=== PATIENT | female | born 1965 ===

== ENCOUNTER 2017-02-14 16:36 | Emergency (ER) | payer OTHER ==
[2017-02-14 16:36] VITALS: BMI 27.3
[2017-02-14 17:04] VITALS: RESP 16; O2SAT 99
--- NOTE | 2017-02-14 17:48 | ED PDOC ---
Arrival/HPI - General Chief Complaint: Back Pain Time Seen by Provider: 02/14/17 17:02 Historian: Patient - History of Present Illness Narrative History of Present Illness (Text): 02/14/17 17:44 51yo female with PMHx of hypertension present with 5days history of sore throat and 2days history of back pain that radiates to her legs. Pain is worse with any movement. Did not take any medication for pain. Denies fever, drooling, dysphagia, sick contact, travel, nausea, vomiting, focal weakness, urinary/ fecal incontinence, any other complaint. Past Medical History - Provider Review Nursing Documentation Reviewed: Yes - Infectious Disease Hx of Infectious Diseases: None - Cardiac Hx Cardiac Disorders: Yes Hx Hypertension: Yes - Pulmonary Hx Respiratory Disorders: No - Neurological Hx Neurological Disorder: Yes Hx Dizziness: Yes (today) Hx Migraine: Yes - HEENT Hx HEENT Disorder: No - Renal Hx Renal Disorder: No - Endocrine/Metabolic Hx Endocrine Disorders: No - Hematological/Oncological Hx Blood Disorders: No - Integumentary Hx Dermatological Disorder: No - Musculoskeletal/Rheumatological Hx Musculoskeletal Disorders: No - Gastrointestinal Hx Gastrointestinal Disorders: No - Genitourinary/Gynecological Hx Genitourinary Disorders: Yes Other/Comment: ovarian cysts removed - Psychiatric Hx Psychophysiologic Disorder: No Hx Substance Use: No - Surgical History Hx Hysterectomy: Yes Other/Comment: cystectomy, fibroid removal. - Anesthesia Hx Anesthesia: Yes Hx Anesthesia Reactions: No Hx Malignant Hyperthermia: No Family/Social History - Physician Review Nursing Documentation Reviewed: Yes Family/Social History: Unknown Family HX Smoking Status: Never Smoked Hx Alcohol Use: No Hx Substance Use: No Allergies/Home Meds Allergies/Adverse Reactions: Allergies EGG Allergy (Verified 02/14/17 17:05) ITCHING FISH Allergy (Verified 02/14/17 17:05) ITCHING salami Allergy (Uncoded 02/14/17 17:05) ITCHING Review of Systems - Physician Review All systems were reviewed & negative as marked: Yes - Review of Systems Constitutional: Normal Eyes: Normal ENT: Normal Respiratory: Normal Cardiovascular: Normal Gastrointestinal: Normal Genitourinary Female: Normal Musculoskeletal: Normal Skin: Normal Neurological: Normal Endocrine: Normal Hemo/Lymphatic: Normal Psychiatric: Normal Physical Exam Vital Signs Reviewed: Yes Vital Signs Temp Pulse Resp BP Pulse Ox 02/14/17 17:03 97.8 F 77 16 139/89 99 Temperature: Afebrile Blood Pressure: Normal Pulse: Regular Respiratory Rate: Normal Appearance: Positive for: Well-Appearing, Non-Toxic, Comfortable Pain Distress: None Mental Status: Positive for: Alert and Oriented X 3 - Systems Exam Head: Present: Atraumatic, Normocephalic Pupils: Present: PERRL Extroacular Muscles: Present: EOMI Conjunctiva: Present: Normal Mouth: Present: Moist Mucous Membranes Pharnyx: Present: Normal. No: ERYTHEMA, EXUDATE, TONSILS ENLARGED, Peritonsilar Swelling, Uvular Deviation, Muffled/Hoarse Voice, Strider, Soft Palate/Uvular Edema Neck: Present: Normal Range of Motion Respiratory/Chest: Present: Clear to Auscultation, Good Air Exchange. No: Respiratory Distress, Accessory Muscle Use Cardiovascular: Present: Regular Rate and Rhythm, Normal S1, S2. No: Murmurs Abdomen: Present: Normal Bowel Sounds. No: Tenderness, Distention, Peritoneal Signs Back: Present: Midline Tenderness. No: Paraspinal Tenderness, Pain with Leg Raise Upper Extremity: Present: Normal Inspection. No: Cyanosis, Edema Lower Extremity: Present: Normal Inspection. No: Edema Neurological: Present: GCS=15, CN II-XII Intact, Speech Normal Skin: Present: Warm, Dry, Normal Color. No: Rashes Psychiatric: Present: Alert, Oriented x 3, Normal Insight, Normal Concentration Medical Decision Making ED Course and Treatment: 02/14/17 18:37 Pt in ED for stated history. She was ambulatory with steady gait and neurologically intact. Rapid strep was negative Her pain improved in ED with medication. She notes allergy to NSAID and will be DC home with tramadol and baclofen. Advised to take Lozenges and f/u with her PMD. - Lab Interpretations Lab Results: Lab Results 02/14/17 17:20: Grp A Beta Strep Ag Negative - RAD Interpretation Radiology Orders: 02/14/17 17:20 LS SPINE WITH OBL > 18 YRS OLD [RAD] Stat - Medication Orders Current Medication Orders: Discontinued Medications Tramadol HCl (Ultram) 50 mg PO STAT STA Stop: 02/14/17 17:21 Last Admin: 02/14/17 17:34 Dose: 50 mg MAR Pain Assessment Document 02/14/17 17:34 MS (Rec: 02/14/17 17:38 MS [id number]) Pain Reassessment Is this a pain reassessment? No Sleep Is patient sleeping during reassessment? No Presence of Pain Presence of Pain Yes Pain Scale Used Pain Scale Used Numeric Location Pain Location Body Site Generalized Description Description Intermittent Intensity of Pain at present 5 Pain Behavior Moaning Facial Grimacing Aggravating Factors Changing Position Alleviating Factors/Management Position Change Techniques Disposition/Present on Arrival - Present on Arrival Any Indicators Present on Arrival: No History of DVT/PE: No History of Uncontrolled Diabetes: No Urinary Catheter: No History of Decub. Ulcer: No History Surgical Site Infection Following: None - Disposition Have Diagnosis and Disposition been Completed?: Yes Diagnosis: Back pain, Sore throat Disposition: HOME/ ROUTINE Disposition Time: 18:40 Patient Plan: Discharge Condition: STABLE Discharge Instructions (ExitCare): Back Pain (ED) Additional Instructions: Follow up with your doctor Return to ED for any new or worsening symptoms Prescriptions: Baclofen [Lioresal] 10 mg PO BID #10 tab traMADol [Ultram] 50 mg PO 12 #12 tab Referrals: Chrissie Lopez [Primary Care Provider] - Follow up with primary Forms: [employer] (Macedonian)
--- NOTE | 2017-02-14 18:23 | RAD ---
PROCEDURE: Radiographs of the Lumbar Spine. HISTORY: back pain COMPARISON: No prior. FINDINGS: BONES: Normal alignment. No listhesis. No fracture. DISC SPACES: Unremarkable. OTHER FINDINGS: Mild degenerative changes are noted IMPRESSION: No evidence of acute fracture or subluxation. Mild degenerative changes.
[2017-02-14 18:52] VITALS: BP 128/76; PULSE 88; TEMP 97.9
== END 2017-02-14 18:52 | disposition home or self-care (01) ==
LOC: ED 16:36
DX: J02.9 Acute pharyngitis, unspecified (principal); M54.9 Dorsalgia, unspecified

== ENCOUNTER 2017-04-15 21:59 | Emergency (ER) | payer OTHER ==
--- NOTE | 2017-04-15 22:17 | ED PDOC ---
Arrival/HPI - General Time Seen by Provider: 04/15/17 22:15 Historian: Patient, Family - History of Present Illness Narrative History of Present Illness (Text): 04/15/17 22:17 Darlene Wise is a 51 year old female, whose past medical history includes myomectomy, ovarian cystectomy, and , who presents to the Emergency department accompanied by relative complaining of abdominal pain. Relative states patient has been experiencing right-sided abdominal pain with associated nausea and vomiting. Patient denies any fever, chills, chest pain, shortness of breath, diarrhea, back pain, neck pain, headache, dizziness, or any other complaints. Time/Duration: Other (this morning) Symptom Onset: Gradual Symptom Course: Unchanged Activities at Onset: Light Context: Home Past Medical History - Provider Review Nursing Documentation Reviewed: Yes - Infectious Disease Hx of Infectious Diseases: None - Cardiac Hx Cardiac Disorders: Yes Hx Hypertension: Yes - Pulmonary Hx Respiratory Disorders: No - Neurological Hx Neurological Disorder: Yes Hx Dizziness: Yes (today) Hx Migraine: Yes - HEENT Hx HEENT Disorder: No - Renal Hx Renal Disorder: No - Endocrine/Metabolic Hx Endocrine Disorders: No - Hematological/Oncological Hx Blood Disorders: No - Integumentary Hx Dermatological Disorder: No - Musculoskeletal/Rheumatological Hx Musculoskeletal Disorders: No - Gastrointestinal Hx Gastrointestinal Disorders: No - Genitourinary/Gynecological Hx Genitourinary Disorders: Yes Other/Comment: ovarian cysts removed - Psychiatric Hx Psychophysiologic Disorder: No Hx Substance Use: No - Surgical History Hx Hysterectomy: Yes Other/Comment: cystectomy, fibroid removal. - Anesthesia Hx Anesthesia: Yes Hx Anesthesia Reactions: No Hx Malignant Hyperthermia: No Family/Social History - Physician Review Nursing Documentation Reviewed: Yes Family/Social History: Unknown Family HX Smoking Status: Never Smoked Hx Alcohol Use: No Hx Substance Use: No Allergies/Home Meds Allergies/Adverse Reactions: Allergies EGG Allergy (Verified 02/14/17 17:05) ITCHING FISH Allergy (Verified 02/14/17 17:05) ITCHING salami Allergy (Uncoded 02/14/17 17:05) ITCHING Review of Systems - Physician Review All systems were reviewed & negative as marked: Yes - Review of Systems Constitutional: Normal. absent: Fevers Eyes: Normal ENT: Normal Respiratory: Normal. absent: SOB, Cough Cardiovascular: Normal. absent: Chest Pain Gastrointestinal: Abdominal Pain, Nausea, Vomiting. absent: Diarrhea Genitourinary Female: Normal. absent: Dysuria, Frequency, Hematuria, Urine Output Changes Musculoskeletal: Normal. absent: Back Pain, Neck Pain Skin: Normal. absent: Rash Neurological: Normal. absent: Headache, Dizziness Endocrine: Normal Hemo/Lymphatic: Normal Psychiatric: Normal Physical Exam Vital Signs Reviewed: Yes Vital Signs Temp Pulse Resp BP Pulse Ox 04/16/17 00:57 92 H 16 136/71 99 04/15/17 22:15 98.4 F 96 H 18 149/90 99 Temperature: Afebrile Blood Pressure: Normal Pulse: Regular Respiratory Rate: Normal Appearance: Positive for: Well-Appearing, Non-Toxic, Comfortable Pain Distress: None Mental Status: Positive for: Alert and Oriented X 3 - Systems Exam Head: Present: Atraumatic, Normocephalic Pupils: Present: PERRL Extroacular Muscles: Present: EOMI Conjunctiva: Present: Normal Mouth: Present: Moist Mucous Membranes Neck: Present: Normal Range of Motion Respiratory/Chest: Present: Clear to Auscultation, Good Air Exchange. No: Respiratory Distress, Accessory Muscle Use Cardiovascular: Present: Regular Rate and Rhythm, Normal S1, S2. No: Murmurs Abdomen: Present: Tenderness (RUQ tenderness), Normal Bowel Sounds. No: Distention, Peritoneal Signs Back: Present: Normal Inspection Upper Extremity: Present: Normal Inspection. No: Cyanosis, Edema Lower Extremity: Present: Normal Inspection. No: Edema Neurological: Present: GCS=15, CN II-XII Intact, Speech Normal Skin: Present: Warm, Dry, Normal Color. No: Rashes Psychiatric: Present: Alert, Oriented x 3, Normal Insight, Normal Concentration Medical Decision Making ED Course and Treatment: 04/15/17 22:17 Impression: 51 year old female complaining of right-sided abdominal pain since this morning. Differential Diagnosis included but are not limited to: kidney stone vs. renal colic Plan: -- EKG -- Labs, cardiac enzymes, lipase, amylase, blood cultures -- Urinalysis -- IV fluids -- Zofran -- Morphine -- Reassess and disposition Prior Visits: Notes and results from previous visits were reviewed. On 02/14/2017, pt was seen in the Emergency department for back pain and sore throat. Pt was d/c home. Progress Notes: 04/15/17 22:50 Reviewed EKG, NSR at 63 bpm. Non-specific ST/T wave changes. 04/16/17 00:59 Reviewed radiology, CT Abdomen and Pelvis shows: Limitations: Motion artifact - mild. Lack of intravenous contrast. Lower thorax: Mild cardiomegaly. Mild atelectasis. ABDOMEN: Liver: Unremarkable. Gallbladder and bile ducts: No calcified stones. No ductal dilation. Pancreas: Unremarkable. No ductal dilation. Spleen: No splenomegaly. Adrenals: No mass. Kidneys and ureters: Few small calculi within RIGHT kidney. [id number] pelvocaliectasis of RIGHT kidney. Mild to moderately dilated RIGHT ureter. 0.2 x 0.2 x 0.2 cm calculus at/near RIGHT ureterovesical junction. Stomach and bowel: No definite mural thickening. No obstruction. Appendix: Normal caliber. No inflammation. PELVIS: Bladder: Unremarkable. No stones. Reproductive: Hysterectomy. ABDOMEN and PELVIS: Intraperitoneal space: No significant fluid collection. No free air. Bones/joints: No acute fracture. Soft tissues: Unremarkable. Vasculature: Unremarkable. No aneurysm. Lymph nodes: No pathologically enlarged lymph nodes. IMPRESSION: 1. RIGHT distal ureteral calculus with [id number] hydroureteronephrosis. 2. Incidental/non-acute findings are described above. 04/16/17 01:08 On re-evaluation, patient feels better and is in no acute distress. I have discussed the results and plan with the patient, who expresses understanding. Patient in agreement with plan to be discharged home. Patient is stable for discharge. Patient was instructed to follow up with physician or return if symptoms worsen or new concerning symptoms arise. - Lab Interpretations Lab Results: 04/15/17 22:30 04/15/17 22:30 Lab Results 04/15/17 23:00: Urine Color yellow, Urine Appearance Clear, Urine pH 6.0, Ur Specific [place] 1.020, Urine Protein Trace H, Urine Glucose (UA) Negative, Urine Ketones Negative, Urine Blood Large H, Urine Nitrate Negative, Urine Bilirubin Negative, Urine Urobilinogen 0.2, Ur Leukocyte Esterase Negative, Urine RBC Tntc, Urine WBC 0 - 2, Ur Epithelial Cells 4 - 5, Urine Bacteria Small 04/15/17 22:30: Sodium 142, Potassium 4.0, Chloride 104, Carbon Dioxide 27, Anion Gap 15, BUN 19, Creatinine 0.7, Est GFR ( Amer) > 60, Est GFR (Non- Af Amer) > 60, Random Glucose 109, Calcium 10.1, Total Bilirubin 0.3, AST 29, ALT 25, Alkaline Phosphatase 70, Lactate Dehydrogenase 387, Total Creatine Kinase 59, Troponin I < 0.01, Total Protein 8.4 H, Albumin 4.4, Globulin 4.1, Albumin/Globulin Ratio 1.1, Amylase 90, Lipase 132 04/15/17 22:30: PT 12.0, INR 1.05, APTT 29.2 04/15/17 22:30: WBC 7.8 D, RBC 4.80, Hgb 13.5, Hct 40.4, MCV 84.2, MCH 28.1, MCHC 33.4, RDW 13.2, Plt Count 157, MPV 12.2 H, Gran % 44.6 L, Lymph % (Auto) 45.3 H, Thayer % (Auto) 8.7 H, Eos % (Auto) 1.3 L, Baso % (Auto) 0.1, Gran # 3.49 , Lymph # 3.6 H, Thayer # 0.7 H, Eos # 0.1, Baso # 0.01 I have reviewed the lab results: Yes - RAD Interpretation Radiology Orders: 04/15/17 23:21 ABD & PELVIS W/O PO OR IV CONT [CT] Stat Title Insurance Sales Representative: Radiologist - EKG Interpretation Interpreted by ED Physician: Yes Type: 12 lead EKG - Medication Orders Current Medication Orders: Discontinued Medications Ciprofloxacin (Cipro) 500 mg PO ONCE STA PRN Reason: Protocol Stop: 04/16/17 01:11 Last Admin: 04/16/17 01:52 Dose: 500 mg Lactated Ringer's (Lactated Ringer's) 1,000 mls @ 100 mls/hr IV .Q10H STA Stop: 04/16/17 08:19 Last Admin: 04/15/17 22:51 Dose: 100 mls/hr eMAR Start Stop Document 04/15/17 22:51 RD (Rec: 04/15/17 22:51 RD [id number]) Intravenous Solution Start Date 04/15/17 Start Time 22:51 Ketorolac Tromethamine (Toradol) 30 mg IVP ONCE ONE Stop: 01/21/18 01:11 Last Admin: 04/16/17 01:52 Dose: 30 mg MAR Pain Assessment Document 04/16/17 01:52 RD (Rec: 04/16/17 01:52 RD [id number]) Pain Reassessment Is this a pain reassessment? No Sleep Is patient sleeping during reassessment? No Presence of Pain Presence of Pain Yes IVP Administration Document 04/16/17 01:52 RD (Rec: 04/16/17 01:52 RD [id number]) Charges for Administration # of IVP Administrations 1 Morphine Sulfate (Morphine) 2 mg IVP STAT STA Stop: 04/15/17 22:21 Last Admin: 04/15/17 22:51 Dose: 2 mg MAR Pain Assessment Document 04/15/17 22:51 RD (Rec: 04/15/17 22:51 RD [id number]) Pain Reassessment Is this a pain reassessment? Yes Sleep Is patient sleeping during reassessment? No Presence of Pain Presence of Pain Yes IVP Administration Document 04/15/17 22:51 RD (Rec: 04/15/17 22:51 RD [id number]) Charges for Administration # of IVP Administrations 1 Ondansetron HCl (Zofran Inj) 4 mg IVP STAT STA Stop: 04/15/17 22:21 Last Admin: 04/15/17 22:51 Dose: 4 mg IVP Administration Document 04/15/17 22:51 RD (Rec: 04/15/17 22:51 RD [id number]) Charges for Administration # of IVP Administrations 1 - Scribe Statement The provider has reviewed the documentation as recorded by the Scriblinh Mg All medical record entries made by the Mariajoseiblinh were at my direction and personally dictated by me. I have reviewed the chart and agree that the record accurately reflects my personal performance of the history, physical exam, medical decision making, and the department course for this patient. I have also personally directed, reviewed, and agree with the discharge instructions and disposition. Disposition/Present on Arrival - Present on Arrival Any Indicators Present on Arrival: No History of DVT/PE: No History of Uncontrolled Diabetes: No Urinary Catheter: No History of Decub. Ulcer: No History Surgical Site Infection Following: None - Disposition Have Diagnosis and Disposition been Completed?: Yes Diagnosis: Renal colic on right side Disposition: HOME/ ROUTINE Disposition Time: 01:10 Condition: GOOD Discharge Instructions (ExitCare): Kidney Stones (ED) Print Language: LIBERIAN Prescriptions: Ciprofloxacin [Cipro] 500 mg PO BID #14 tab Tamsulosin [Flomax] 0.4 mg PO DAILY #10 cap Tramadol HCl [Ultram] 50 mg PO QID #10 tab Referrals: [facility] [place] - Follow up with primary Forms: [employer] (Wallisian)
[2017-04-15] MEDS ORDERED: Lactated Ringer's 1,000 ML IV STA (22:20)
[2017-04-15] MEDS ORDERED: Morphine 2 mg/ml ISec IVP STA (22:20)
[2017-04-15 22:22] VITALS: BMI 27.4
[2017-04-15 22:23] VITALS: TEMP 98.4; O2SAT 99
[2017-04-15 22:47] LABS: BASO # 0.01 [, K/mm3] (0.0-2.0); BASO % 0.1 % (0.0-3.0); EOS # 0.1 (0.0-0.7); EOS % 1.3 % (1.5-5.0); GRAN # 3.49 (1.4-6.5); GRAN % 44.6 % (50.0-68.0); HEMOGLOBIN 13.5 g/dL (12.0-16.0); LYMPH # 3.6 (1.2-3.4); LYMPH % 45.3 % (22.0-35.0); MEAN CELL VOLUME 84.2 fl (80.0-105.0); MEAN CORPUSCULAR HEMOGLOBIN 28.1 pg (25.0-35.0); MEAN CORPUSCULAR HGB CONC 33.4 g/dl (31.0-37.0); MEAN PLATELET VOLUME 12.2 fl (7.0-11.0); MONO # 0.7 (0.1-0.6); MONO % 8.7 % (1.0-6.0); RBC 4.8 [, 10^6/uL] (3.5-6.1); RED CELL DISTRIBUTION WIDTH 13.2 % (11.5-14.5); WHITE BLOOD COUNT 7.8 [, 10^3/ul] (4.5-11.0)
[2017-04-15 22:53] LABS: ALBUMIN 4.4 g/dL (3.0-4.8); ALT/SGPT 25 U/L (7-56); AMYLASE 90 U/L (35-125); AST/SGOT 29 U/L (14-36); BLOOD UREA NITROGEN 19 mg/dL (7-21); CALCIUM 10.1 mg/dL (8.4-10.5); GFR AFRICAN-AMERICAN > 60; GFR NON-AFRICAN AMERICAN > 60; LIPASE 132 U/L (23-300)
[2017-04-15 22:59] LABS: ALB/GLOB RATIO 1.1 (1.1-1.8)
[2017-04-15 23:04] LABS: TROPONIN I < 0.01 ng/mL
[2017-04-15 23:15] LABS: URINE BILIRUBIN NEGATIVE (NEGATIVE); URINE BLOOD LARGE (NEGATIVE); URINE GLUCOSE (UA) NEGATIVE (NEGATIVE); URINE LEUKOCYTE ESTERASE NEGATIVE Leu/uL (NEGATIVE); URINE NITRATE NEGATIVE (NEGATIVE); URINE PROTEIN TRACE mg/dL (<30 mg/dL); URINE UROBILINOGEN 0.2 E.U./dL (<1 E.U./dL)
[2017-04-15 23:17] LABS: URINE APPEARANCE CLEAR (CLEAR)
[2017-04-15 23:18] LABS: INR 1.05 (0.93-1.08); PARTIAL THROMBOPLASTIN TIME 29.2 Seconds (25.1-36.5)
[2017-04-15 23:31] LABS: URINE BACTERIA SMALL (NEG); URINE RBC TNTC /hpf (0-2); URINE WBC 0 - 2 /hpf (0-6)
--- NOTE | 2017-04-16 00:42 | CT ---
EXAM: CT Abdomen and Pelvis Without Intravenous Contrast CLINICAL HISTORY: 51 years old, female; Pain; Abdominal pain; Localized; Right; Prior surgery; Surgery date: 6+ months; Surgery type: HX hysterectomy, HX fibroids removed, HX ovarian cysts removed; Additional info: Ruq pain TECHNIQUE: Axial computed tomography images of the abdomen and pelvis without intravenous contrast. All CT scans at this facility use one or more dose reduction techniques, viz.: automated exposure control; ma/kV adjustment per patient size (including targeted exams where dose is matched to indication; i.e. head); or iterative reconstruction technique. Coronal and sagittal reformatted images were created and reviewed. COMPARISON: No relevant prior studies available. FINDINGS: Limitations: Motion artifact - mild. Lack of intravenous contrast. Lower thorax: Mild cardiomegaly. Mild atelectasis. ABDOMEN: Liver: Unremarkable. Gallbladder and bile ducts: No calcified stones. No ductal dilation. Pancreas: Unremarkable. No ductal dilation. Spleen: No splenomegaly. Adrenals: No mass. Kidneys and ureters: Few small calculi within RIGHT kidney. [id number] pelvocaliectasis of RIGHT kidney. Mild to moderately dilated RIGHT ureter. 0.2 x 0.2 x 0.2 cm calculus at/near RIGHT ureterovesical junction. Stomach and bowel: No definite mural thickening. No obstruction. Appendix: Normal caliber. No inflammation. PELVIS: Bladder: Unremarkable. No stones. Reproductive: Hysterectomy. ABDOMEN and PELVIS: Intraperitoneal space: No significant fluid collection. No free air. Bones/joints: No acute fracture. Soft tissues: Unremarkable. Vasculature: Unremarkable. No aneurysm. Lymph nodes: No pathologically enlarged lymph nodes. IMPRESSION: 1. RIGHT distal ureteral calculus with [id number] hydroureteronephrosis. 2. Incidental/non-acute findings are described above.
[2017-04-16 00:58] VITALS: BP 136/71; PULSE 92; RESP 16
--- NOTE | 2017-04-16 10:11 | CARD ---
APPROVED REPORT EKG Measurement Heart [id number] AL [id number] <Conclusion> Normal sinus rhythm Normal ECG No change
== END 2017-04-16 01:52 | disposition home or self-care (01) ==
LOC: ED 21:59
DX: N23 Unspecified renal colic (principal); I10 Essential (primary) hypertension
CPT/HCPCS: 74176; 80053; 81001; 82150; 82550; 83615; 83690; 84484; 85025; 85610; 85730; 87040; 93005; 96374; 96375; 99283; J1885; J2270; J2405; J7120

== ENCOUNTER 2017-10-16 12:54 | Emergency (ER) | payer OTHER ==
[2017-10-16 13:02] VITALS: BMI 27.9
[2017-10-16 13:07] VITALS: TEMP 98.2
--- NOTE | 2017-10-16 14:54 | RAD ---
Date of service: 10/16/2017 PROCEDURE: Right Foot Radiographs. HISTORY: Blunt Trauma Yesterday COMPARISON: None. FINDINGS: BONES: There is an obliquely oriented minimally displaced fracture through the mid 5th proximal phalanx JOINTS: Normal. SOFT TISSUES: Normal. OTHER FINDINGS: None. IMPRESSION: There is an obliquely oriented minimally displaced fracture through the mid 5th proximal phalanx
--- NOTE | 2017-10-16 15:09 | ED PDOC ---
Arrival/HPI - General Time Seen by Provider: 10/16/17 13:08 Historian: Patient - History of Present Illness Narrative History of Present Illness (Text): 10/16/17 15:06 52 year old female, with no significant past medical history, who presents to the emergency department with right foot pain. Patient notes a dresser fell on the foot. Patient denies any fever, chills, chest pain, shortness of breath, nausea, vomiting, diarrhea, back pain, neck pain, headache, dizziness, or any other complaints. Time/Duration: Other (yesterday) Symptom Onset: Sudden Symptom Course: Unchanged Activities at Onset: Light Context: Home Past Medical History - Provider Review Nursing Documentation Reviewed: Yes - Infectious Disease Hx of Infectious Diseases: None - Cardiac Hx Cardiac Disorders: Yes Hx Hypertension: Yes - Pulmonary Hx Respiratory Disorders: No - Neurological Hx Neurological Disorder: Yes Hx Dizziness: Yes (today) Hx Migraine: Yes - HEENT Hx HEENT Disorder: No - Renal Hx Renal Disorder: No - Endocrine/Metabolic Hx Endocrine Disorders: No - Hematological/Oncological Hx Blood Disorders: No - Integumentary Hx Dermatological Disorder: No - Musculoskeletal/Rheumatological Hx Musculoskeletal Disorders: No - Gastrointestinal Hx Gastrointestinal Disorders: No - Genitourinary/Gynecological Hx Genitourinary Disorders: Yes Other/Comment: ovarian cysts removed - Psychiatric Hx Psychophysiologic Disorder: No Hx Substance Use: No - Surgical History Hx Hysterectomy: Yes Other/Comment: cystectomy, fibroid removal. - Anesthesia Hx Anesthesia: Yes Hx Anesthesia Reactions: No Hx Malignant Hyperthermia: No Family/Social History - Physician Review Nursing Documentation Reviewed: Yes Family/Social History: Unknown Family HX Smoking Status: Never Smoked Hx Alcohol Use: No Hx Substance Use: No Allergies/Home Meds Allergies/Adverse Reactions: Allergies EGG Allergy (Verified 02/14/17 17:05) ITCHING FISH Allergy (Verified 02/14/17 17:05) ITCHING salami Allergy (Uncoded 02/14/17 17:05) ITCHING Review of Systems - Physician Review All systems were reviewed & negative as marked: Yes - Review of Systems Constitutional: Normal Eyes: Normal ENT: Normal Respiratory: Normal. absent: SOB, Cough Cardiovascular: Normal. absent: Chest Pain Gastrointestinal: Normal. absent: Abdominal Pain, Diarrhea, Nausea, Vomiting Genitourinary Female: Normal. absent: Dysuria, Frequency Musculoskeletal: Other (rigth foot pain). absent: Back Pain, Neck Pain Skin: Normal. absent: Rash Neurological: Normal. absent: Headache, Dizziness Endocrine: Normal Hemo/Lymphatic: Normal Psychiatric: Normal Physical Exam Vital Signs Reviewed: Yes Vital Signs Temp Pulse Resp BP Pulse Ox 10/16/17 13:06 98.2 F 89 18 108/78 96 Temperature: Afebrile Blood Pressure: Normal Pulse: Regular Respiratory Rate: Normal Appearance: Positive for: Well-Appearing, Non-Toxic, Comfortable Pain Distress: None Mental Status: Positive for: Alert and Oriented X 3 - Systems Exam Head: Present: Atraumatic, Normocephalic Pupils: Present: PERRL Extroacular Muscles: Present: EOMI Conjunctiva: Present: Normal Mouth: Present: Moist Mucous Membranes Neck: Present: Normal Range of Motion Respiratory/Chest: Present: Clear to Auscultation, Good Air Exchange. No: Respiratory Distress, Accessory Muscle Use Cardiovascular: Present: Regular Rate and Rhythm, Normal S1, S2. No: Murmurs Abdomen: No: Tenderness, Distention, Peritoneal Signs Back: Present: Normal Inspection Upper Extremity: Present: Normal Inspection. No: Cyanosis, Edema Lower Extremity: Present: Swelling (rigth foot). No: Edema Neurological: Present: GCS=15, CN II-XII Intact, Speech Normal Skin: Present: Warm, Dry, Normal Color. No: Rashes Psychiatric: Present: Alert, Oriented x 3, Normal Insight, Normal Concentration Medical Decision Making ED Course and Treatment: 10/16/17 15:10 Impression: 52 year old female present sot th eed with right foot pain. Plan: -- Xray rt foot -- Reassess and disposition Progress Notes: Xray rt foot reviewed, shows: BONES: There is an obliquely oriented minimally displaced fracture through the mid 5th proximal phalanx JOINTS: Normal. SOFT TISSUES: Normal. OTHER FINDINGS: None. IMPRESSION: There is an obliquely oriented minimally displaced fracture through the mid 5th proximal phalanx - RAD Interpretation Radiology Orders: 10/16/17 13:10 FOOT RIGHT 3 VIEWS ROUTINE [RAD] Stat - Scribe Statement The provider has reviewed the documentation as recorded by the Scribe Graciela Le All medical record entries made by the Scribe were at my direction and personally dictated by me. I have reviewed the chart and agree that the record accurately reflects my personal performance of the history, physical exam, medical decision making, and the department course for this patient. I have also personally directed, reviewed, and agree with the discharge instructions and disposition. Disposition/Present on Arrival - Present on Arrival History of DVT/PE: No History of Uncontrolled Diabetes: No Urinary Catheter: No History of Decub. Ulcer: No History Surgical Site Infection Following: None - Disposition Diagnosis: Broken toe Disposition: HOME/ ROUTINE Patient Problems: Current Active Problems Problem Status Onset Broken toe Acute Condition: GOOD Discharge Instructions (ExitCare): Toe Fracture (DC) Additional Instructions: Mary- Please wear the shoe at all times except to sleep and bathe. Keep the toes taped together. Follow up with Orthopedics. Konrad- Dr. Troy Starr Prescriptions: Ibuprofen [Motrin Tab] 800 mg PO TID #30 tab Referrals: Valentino Olsen DO [Staff Provider] - Follow up with primary Forms: [facility] (Kazakh)
[2017-10-16 15:13] VITALS: BP 120/61; PULSE 82; RESP 19; O2SAT 98
== END 2017-10-16 15:09 | disposition home or self-care (01) ==
LOC: ED 12:54
DX: S92.511A Displaced fracture of proximal phalanx of right lesser toe(s), initial encounter for closed fracture (principal); W20.8XXA Other cause of strike by thrown, projected or falling object, initial encounter; Y92.009 Unspecified place in unspecified non-institutional (private) residence as the place of occurrence of the external cause

== ENCOUNTER 2017-10-24 14:54 | Emergency (ER) | payer OTHER ==
[2017-10-24 15:00] VITALS: BMI 28.3
[2017-10-24 15:06] VITALS: RESP 18; TEMP 98.3; O2SAT 98
--- NOTE | 2017-10-24 15:42 | ED PDOC ---
Arrival/HPI - General Chief Complaint: Lower Extremity Problem/Injury Time Seen by Provider: 10/24/17 15:39 Historian: Patient - History of Present Illness Narrative History of Present Illness (Text): 10/24/17 15:34 A 52 year old female, with no significant past medical history, presents to the emergency department s/p injury to the left 5th toe 11 days ago, today she is complaining of continued swelling and pain to the L 5th toe. Patient reports she was recently treated here on 10/16/17 for similar complaint and was diagnosed with fracture. States since visit she has not followed up with any specialist. Patient reports that the pain is causing difficulty for her to sleep , has taken Ibuprofen, however has had no relief and is requesting for a stronger medication. Patient denies numbness or other notable injuries/traumas, or any other complaints. Past Medical History - Provider Review Nursing Documentation Reviewed: Yes - Infectious Disease Hx of Infectious Diseases: None - Cardiac Hx Cardiac Disorders: Yes Hx Hypertension: Yes - Pulmonary Hx Respiratory Disorders: No - Neurological Hx Neurological Disorder: Yes Hx Dizziness: Yes (today) Hx Migraine: Yes - HEENT Hx HEENT Disorder: No - Renal Hx Renal Disorder: No - Endocrine/Metabolic Hx Endocrine Disorders: No - Hematological/Oncological Hx Blood Disorders: No - Integumentary Hx Dermatological Disorder: No - Musculoskeletal/Rheumatological Hx Musculoskeletal Disorders: No - Gastrointestinal Hx Gastrointestinal Disorders: No - Genitourinary/Gynecological Hx Genitourinary Disorders: Yes Other/Comment: ovarian cysts removed - Psychiatric Hx Psychophysiologic Disorder: No Hx Substance Use: No - Surgical History Hx Hysterectomy: Yes Other/Comment: cystectomy, fibroid removal. - Anesthesia Hx Anesthesia: Yes Hx Anesthesia Reactions: No Hx Malignant Hyperthermia: No Family/Social History - Physician Review Nursing Documentation Reviewed: Yes Family/Social History: No Known Family HX Smoking Status: Never Smoked Hx Alcohol Use: No Hx Substance Use: No Allergies/Home Meds Allergies/Adverse Reactions: Allergies EGG Allergy (Verified 02/14/17 17:05) ITCHING FISH Allergy (Verified 02/14/17 17:05) ITCHING salami Allergy (Uncoded 02/14/17 17:05) ITCHING Review of Systems - Physician Review All systems were reviewed & negative as marked: Yes - Review of Systems Constitutional: absent: Other (no other notable injuries/trauma) Musculoskeletal: Other (left foot 5th digit swelling and pain) Physical Exam Vital Signs Reviewed: Yes Vital Signs Temp Pulse Resp BP Pulse Ox 10/24/17 16:00 98.3 F 79 18 121/72 98 10/24/17 15:06 98.3 F 83 18 118/80 98 Temperature: Afebrile Blood Pressure: Normal Pulse: Regular Respiratory Rate: Normal Appearance: Positive for: Well-Appearing Pain Distress: None Mental Status: Positive for: Alert and Oriented X 3 - Systems Exam Head: Present: Atraumatic, Normocephalic Neck: Present: Normal Range of Motion Respiratory/Chest: Present: Clear to Auscultation, Good Air Exchange. No: Respiratory Distress, Accessory Muscle Use Cardiovascular: Present: Regular Rate and Rhythm, Normal S1, S2. No: Murmurs Abdomen: No: Tenderness, Distention, Peritoneal Signs Back: Present: Normal Inspection Upper Extremity: Present: Normal Inspection. No: Cyanosis, Edema Lower Extremity: Present: Normal ROM (left foot 5th digit), Tenderness (left foot 5th digit), Swelling (left foot 5th digit), Neurovascularly Intact Neurological: Present: GCS=15, CN II-XII Intact, Speech Normal Skin: Present: Warm, Dry, Normal Color. No: Rashes Psychiatric: Present: Alert, Oriented x 3, Normal Insight, Normal Concentration Medical Decision Making ED Course and Treatment: 10/24/17 15:39 Advised to rest, ice and elevate the foot. Rx for tramadol provided to the patient, advised to take only at night to alleviate the pain. Patient instructed to follow-up with referral provided in 1-2 days without fail. Advised to take medication as prescribed. Return to the emergency room at any time for any new or worsening symptoms. Patient states she fully agrees with and understands discharge instructions. States that she agrees with the plan and disposition. Verbalized and repeated discharge instructions and plan. I have given the patient opportunity to ask any additional questions. - PA / COATING MIXER / Resident Statement MD/DO has reviewed & agrees with the documentation as recorded. - Scribe Statement The provider has reviewed the documentation as recorded by the Gigi Robbins Provider Scribe Provider Scribe Attestation: All medical record entries made by the Mariajoseiblinh were at my direction and personally dictated by me. I have reviewed the chart and agree that the record accurately reflects my personal performance of the history, physical exam, medical decision making, and the department course for this patient. I have also personally directed, reviewed, and agree with the discharge instructions and disposition. Disposition/Present on Arrival - Present on Arrival Any Indicators Present on Arrival: No History of DVT/PE: No History of Uncontrolled Diabetes: No Urinary Catheter: No History of Decub. Ulcer: No History Surgical Site Infection Following: None - Disposition Have Diagnosis and Disposition been Completed?: Yes Diagnosis: Toe fracture, left Disposition: HOME/ ROUTINE Disposition Time: 15:30 Patient Plan: Discharge Condition: STABLE Discharge Instructions (ExitCare): Toe Fracture (DC) Print Language: MACANESE Additional Instructions: racias por dejarnos atenderlo hoy. Usted fue tratado por fractura del dedo sage del pie. La atencin mdica de emergencia que recibi hoy estaba dirigida a esperanza sntomas agudos. Si le prescribieron algn medicamento, llnelo y tome seg n las indicaciones. Esperanza sntomas pueden tardar varios shannon en resolverse. Regrese al Departamento de Emergencia si esperanza sntomas empeoran, no mejoran o si tiene algn otro problema. Llame a marsha de los mdicos / clnicas a los que watkins recomendado que se detallan en el formulario de Informacin de visita del paciente que se incluye en culp paquete de maricel. Traiga todos los documentos que recibi al momento del maricel junto con los medicamentos que est tomando en culp visita de seguimiento. Nuestro tratamiento no puede reemplazar la atencin mdica en curso por parte de un proveedor de atencin primaria (PCP) fuera del departamento de emergencias. Ozzy por permitir que el equipo de [facility] sea parte de culp cuidado hoy. Prescriptions: traMADol [Ultram] 50 mg PO TID PRN #12 tab PRN Reason: Pain, Moderate (4-7) Referrals: [facility] [Outside] - Follow up with primary Mastromonaco,Edward, DO [Staff Provider] - Follow up with primary Forms: [employer] (Wolof)
[2017-10-24 16:42] VITALS: BP 121/72; PULSE 79
== END 2017-10-24 16:00 | disposition home or self-care (01) ==
LOC: ED 14:54
DX: S92.511D Displaced fracture of proximal phalanx of right lesser toe(s), subsequent encounter for fracture with routine healing (principal); W20.8XXD Other cause of strike by thrown, projected or falling object, subsequent encounter

== ENCOUNTER 2018-03-07 14:03 | Emergency (ER) | payer OTHER ==
[2018-03-07 14:27] VITALS: BMI 28.9
[2018-03-07 14:28] VITALS: RESP 18
[2018-03-07 16:27] LABS: INFLUENZA A B NEGATIVE FOR FLU A/B (NEGATIVE)
[2018-03-07 16:41] VITALS: TEMP 97.8; O2SAT 98
--- NOTE | 2018-03-07 17:12 | ED PDOC ---
Arrival/HPI - General Chief Complaint: Cough, Cold, Congestion Time Seen by Provider: 03/07/18 14:40 Historian: Patient - History of Present Illness Narrative History of Present Illness (Text): 52 year old female with PMH of HTN and migraines presents to the ED complaining of flu-like symptoms x 4 days. Symptoms consist of frontal headache, sinus congestion, myalgias, cough productive of yellow sputum. Taking Tylenol for symptoms without relief, none today. No sick contacts, recent antibiotic use, or recent travel. Denies fevers, chills, abdominal pain, vision changes, dizziness, nausea, vomiting, diarrhea, saddle anesthesia, incontinence, urinary symptoms, neck pain, weakness, numbness, paresthesias, or any other associated symptoms. Past Medical History - Provider Review Nursing Documentation Reviewed: Yes - Infectious Disease Hx of Infectious Diseases: None - Cardiac Hx Cardiac Disorders: Yes Hx Hypertension: Yes - Pulmonary Hx Respiratory Disorders: No - Neurological Hx Migraine: Yes - HEENT Hx HEENT Disorder: No - Renal Hx Renal Disorder: No - Endocrine/Metabolic Hx Endocrine Disorders: No - Hematological/Oncological Hx Blood Disorders: No - Integumentary Hx Dermatological Disorder: No - Musculoskeletal/Rheumatological Hx Musculoskeletal Disorders: No - Gastrointestinal Hx Gastrointestinal Disorders: No - Genitourinary/Gynecological Hx Genitourinary Disorders: Yes Other/Comment: myoma, hysterectomy, ovarian cysts removed - Psychiatric Hx Psychophysiologic Disorder: No Hx Substance Use: No - Surgical History Hx Hysterectomy: Yes Other/Comment: cystectomy, fibroid removal. - Anesthesia Hx Anesthesia: Yes Hx Anesthesia Reactions: No Hx Malignant Hyperthermia: No Family/Social History - Physician Review Nursing Documentation Reviewed: Yes Family/Social History: No Known Family HX Smoking Status: Never Smoked Hx Alcohol Use: No Hx Substance Use: No Allergies/Home Meds Allergies/Adverse Reactions: Allergies aspirin Allergy (Verified 11/10/17 10:01) RASH ibuprofen Allergy (Verified 11/10/17 10:01) RASH Review of Systems - Physician Review All systems were reviewed & negative as marked: Yes - Review of Systems Constitutional: Fatigue. absent: Fevers Eyes: Normal. absent: Vision Changes, Photophobia ENT: Sore Throat, Sinus Congestion, Other (Ear Pain) Respiratory: Cough, Sputum. absent: SOB Cardiovascular: Normal. absent: Chest Pain, Palpitations, Syncope Gastrointestinal: Normal. absent: Abdominal Pain, Nausea, Vomiting Genitourinary Female: Normal. absent: Dysuria, Frequency Musculoskeletal: Back Pain (Left lower; 1 month). absent: Neck Pain Skin: Normal. absent: Rash Neurological: Headache (frontal). absent: Dizziness, Focal Weakness, Seizure Endocrine: Normal Hemo/Lymphatic: Normal Psychiatric: Normal Physical Exam Vital Signs Reviewed: Yes Vital Signs Temp Pulse Resp BP Pulse Ox 03/07/18 16:39 97.8 F 55 L 18 151/89 H 98 03/07/18 14:27 98.0 F 76 18 129/86 99 Temperature: Afebrile Blood Pressure: Normal Pulse: Regular Respiratory Rate: Normal Appearance: Positive for: Well-Appearing, Non-Toxic, Comfortable Pain Distress: None Mental Status: Positive for: Alert and Oriented X 3 - Systems Exam Head: Present: Atraumatic, Normocephalic Pupils: Present: PERRL Extroacular Muscles: Present: EOMI Conjunctiva: Present: Normal Ears: Present: Normal Mouth: Present: Moist Mucous Membranes Pharnyx: Present: Normal. No: ERYTHEMA, EXUDATE, TONSILS ENLARGED Nose (External): Present: Atraumatic Nose (Internal): Present: Normal Inspection, Moist, Rhinorrhea. No: Purulent Mucous Neck: Present: Normal Range of Motion. No: Lymphadenopathy Respiratory/Chest: Present: Clear to Auscultation, Good Air Exchange. No: Respiratory Distress, Accessory Muscle Use Cardiovascular: Present: Regular Rate and Rhythm, Normal S1, S2, Peripheal Pulses Present. No: Murmurs Abdomen: No: Tenderness, Distention, Peritoneal Signs Back: Present: Normal Inspection Upper Extremity: Present: Normal Inspection, Normal ROM, NORMAL PULSES, Neurovascularly Intact, Capillary Refill < 2s. No: Cyanosis, Edema Lower Extremity: Present: Normal Inspection, NORMAL PULSES, Normal ROM, Neurovascularly Intact, Capillary Refill < 2 s. No: Edema Neurological: Present: GCS=15, CN II-XII Intact, Speech Normal, Motor Func Grossly Intact, Normal Sensory Function, Gait Normal Skin: Present: Warm, Dry, Normal Color. No: Rashes Lymphatic: No: Cervical Adenopathy Psychiatric: Present: Alert, Oriented x 3, Normal Insight, Normal Concentration, Normal Affect, Normal Mood Medical Decision Making ED Course and Treatment: Initial Plan: * Rapid Strep * Rapid Flu * CXR Rapid flu: neg Rapid strep: neg CXR: no active disease Patient now c/o left lower back pain present for 1 month. Left lumbar paraspinal muscles tender to palpation. * UA * Lumbar Spine Xray * Flexeril * Tylenol * Lidoderm UA unremarkable Lumbar Spine XR read as normal by Dr. Arzola. Patient reports resolution of pain after medications. States she is hungry and would like to leave the ED. Pt resting comfortably in stretcher. Plan of care discussed with patient, and strict instructions given regarding prescriptions, importance of follow up, and signs to return to Emergency Department, to include numbness, paresthesias, weakness, chest pain, SOB, or any other new/worsening symptoms. Patient verbalizes understanding of discussion. Patient A&Ox3, ambulating with steady gait, stable for discharge home. - Lab Interpretations Lab Results: Lab Results 03/07/18 15:50: Influenza Typ A,B (EIA) Negative for flu a/b, Grp A Beta Strep Ag Negative - RAD Interpretation Narrative RAD Interpretations (Text): CXR: no active disease Lumbar Spine XR: no acute process Radiology Orders: 03/07/18 14:39 CXR (PA/LAT) [CHEST TWO VIEWS (PA/LAT)] [RAD] Stat Extrusion Press Supervisor: ED Physician (Dr. Arzola), Radiologist Disposition/Present on Arrival - Present on Arrival Any Indicators Present on Arrival: No History of DVT/PE: No History of Uncontrolled Diabetes: No Urinary Catheter: No History of Decub. Ulcer: No History Surgical Site Infection Following: None - Disposition Have Diagnosis and Disposition been Completed?: Yes Diagnosis: Upper respiratory infection Disposition: HOME/ ROUTINE Disposition Time: 19:00 Patient Plan: Discharge Condition: STABLE Discharge Instructions (ExitCare): Bacterial Upper Respiratory Infection, Adult Print Language: ROMANSH Additional Instructions: John antibiticos segn lo prescrito. Aumentar los fluidos Seguimiento con clnica o mdico primario en 2 shannon. Regrese a la lorenzo de emergencias para cualquier sntoma nuevo / que empeora Prescriptions: Azithromycin [Z-Gulshan] 250 mg PO DAILY #6 tab Referrals: [facility] [Outside] - Follow up with primary at [facility] [place]] - Follow up with primary Tete Hernandez MD [Medical Doctor] - Follow up with primary Forms: [facility] (Maltese), WORK NOTE
--- NOTE | 2018-03-07 17:16 | RAD ---
Date of service: 03/07/2018 HISTORY: r/o PNA COMPARISON: Chest radiographs 12/05/2016. TECHNIQUE: Chest PA and lateral FINDINGS: LUNGS: No active pulmonary disease. PLEURA: No significant pleural effusion identified. No pneumothorax apparent. CARDIOVASCULAR: No aortic atherosclerotic calcification present. Normal cardiac size. No pulmonary vascular congestion. OSSEOUS STRUCTURES: No significant abnormalities. VISUALIZED UPPER ABDOMEN: Normal. OTHER FINDINGS: None. IMPRESSION: No interval acute cardiopulmonary disease appreciated.
[2018-03-07 18:15] VITALS: BP 148/78; PULSE 96
[2018-03-07 18:49] LABS: PH,URINE 7.5 (4.7-8.0); URINE BILIRUBIN NEGATIVE (NEGATIVE); URINE BLOOD NEGATIVE (NEGATIVE); URINE GLUCOSE (UA) NEGATIVE (NEGATIVE); URINE LEUKOCYTE ESTERASE NEGATIVE Leu/uL (NEGATIVE); URINE PROTEIN NEGATIVE mg/dL (<30 mg/dL); URINE UROBILINOGEN 0.2 E.U./dL (<1 E.U./dL)
[2018-03-07 18:53] LABS: URINE APPEARANCE CLEAR (CLEAR); URINE COLOR YELLOW (YELLOW)
[2018-03-07] MEDS ORDERED: Lidocaine 5% Patch TD STA (18:57)
--- NOTE | 2018-03-08 14:12 | RAD ---
Date of service: 03/07/2018 PROCEDURE: Radiographs of the Lumbar Spine. HISTORY: back pain COMPARISON: No prior. FINDINGS: BONES: There is normal alignment of the lumbar vertebral bodies. There is normal lumbar lordosis. There is no acute fracture, spondylolysis or spondylolisthesis. Bone mineralization is normal. DISC SPACES: There is mild degenerative disc disease at L5-S1 with reduced disc height and facet arthropathy. The remaining disc heights are maintained. OTHER FINDINGS: None. IMPRESSION: No acute fracture. Mild degenerative disc disease at L5-S1.
== END 2018-03-07 19:10 | disposition home or self-care (01) ==
LOC: ED 14:03
DX: J06.9 Acute upper respiratory infection, unspecified (principal); I10 Essential (primary) hypertension